=== PATIENT | male | born 1990 | race American Indian/Alaskan Native ===

== ENCOUNTER 2019-10-03 11:33 | Emergency (ER) | payer SELFPAY ==
--- NOTE | 2019-10-03 11:40 | Emergency Department Report ---
Chief Complaint: Urogenital-Male Stated Complaint: IRRITATION PENIS Time Seen by Provider: 10/03/19 11:38 - HPI History of Present Illness: pt states he has penile discharge that began two days ago states had a new partner no dysuria STD hx: gonorrhea at 16 years old no n/v, no fever, no testicular edema or pain, no abd pain no PMHx no allergies to meds pt is presenting with a non-medical emergency at this time Medical screening examination performed and there is no threat to life or limb at this time reffered patient to the health Department for full STD panel and treatment and community clinics advised pt please follow up with the health department or a clinic for a full STD panel. return to the emergency room for any new or worsening symptoms. MSE screening note: Focused history and physical exam performed. ED Disposition for MSE Clinical Impression: Concern about STD in male without diagnosis Disposition: Z- MED SCREENING EXAM-LEFT Is pt being admited?: No Does the pt Need Aspirin: No Condition: Stable Instructions: Sexually Transmitted Diseases (ED), Safe Sex (ED) Additional Instructions: please follow up with the health department or a clinic for a full STD panel. return to the emergency room for any new or worsening symptoms. Referrals: [facility] [Outside] - 2-3 Days SIMEON CORTES MD [Staff Physician] - 2-3 Days Time of Disposition: 11:40 Print Language: ALGERIAN
[2019-10-03 11:41] VITALS: BP 107/77
== END 2019-10-03 11:43 | disposition left against medical advice (07) ==
LOC: ED 11:33
DX: R36.9 Urethral discharge, unspecified (principal)
CPT/HCPCS: 99281